=== PATIENT | female | born 1985 | race Caucasian/White ===

== ENCOUNTER 2018-02-01 00:44 | Emergency (ER) | payer MEDICARE, MEDICAID ==
[2018-02-01 00:54] VITALS: BP 140/80
[2018-02-01 01:06] LABS: APPEARANCE,URINE SLIGHTLY-CLOUDY; BILIRUBIN,URINE NEGATIVE (NEGATIVE); COLOR,URINE STRAW; GLUCOSE, URINE NEGATIVE (NEGATIVE); KETONES,URINE NEGATIVE (NEGATIVE); LEUKOCYTE ESTERASE,URINE NEGATIVE (NEGATIVE); NITRITE,URINE NEGATIVE (NEGATIVE); PROTEIN,URINE NEGATIVE (NEGATIVE); URINE SPECIFIC GRAVITY 1.012; UROBILINOGEN,URINE NEGATIVE mg/dL (<2.0)
--- NOTE | 2018-02-01 01:45 | ER Document Report ---
ED Medical Screen (RME) - General Chief Complaint: Flank Pain Stated Complaint: FLANK PAIN Time Seen by Provider: 02/01/18 01:37 Mode of Arrival: Ambulatory Information source: Patient Notes: 32-year-old female presents to ED for complaint of abdominal pain chest pain flank pain and back pain bilaterally. She states she has a head cold cough congestion spitting up green sputum. She states she started eating spicy green- brown mustard and started feeling much better. She states the pain all started about 10 PM tonight she has had the cough and congestion for about 5 days. She denies any fevers. I offered patient Tylenol and Motrin and she did not want either one. She was walking bent over states she could not stand up that it hurt too much. She was speaking full sentences with no shortness of breath. No acute distress until she stood up and tried to walk. I have greeted and performed a rapid initial assessment of this patient. A comprehensive ED assessment and evaluation of the patient, analysis of test results and completion of medical decision making process will be conducted by an additional ED providers. TRAVEL OUTSIDE OF THE [place] IN LAST 30 DAYS: No - Related Data Allergies/Adverse Reactions: codeine [Codeine] Allergy (Severe, Verified 02/28/15 09:32) VOMITING doxycycline [Doxycycline] Allergy (Severe, Verified 02/28/15 09:32) RASH fentanyl [Fentanyl] Allergy (Severe, Verified 02/28/15 09:52) Unknown reaction morphine [Morphine] Allergy (Severe, Verified 02/28/15 09:32) Anaphylaxis Penicillins Allergy (Severe, Verified 02/28/15 09:32) RASH promethazine HCl [From Phenergan] Allergy (Severe, Verified 02/28/15 09:32) VOMITING acetaminophen [From Tylenol] Allergy (Mild, Verified 02/28/15 09:32) SKIN GETS HOT tramadol [Tramadol] Allergy (Verified 02/28/15 17:39) zolpidem tartrate [From Ambien] Allergy (Verified 02/28/15 17:39) albuterol [Albuterol] Adverse Reaction (Severe, Verified 02/28/15 09:52) Tachycardia Flu vacine Allergy (Severe, Uncoded 02/28/15 09:32) Unknown reaction Past Medical History Renal/ Medical History: Denies: Hx Kidney Stones, Hx Ovarian Cysts, Hx Peritoneal Dialysis, Hx Pelvic Inflammatory Disease Malignancy Medical History: Denies: Hx Breast Cancer, Hx Cervical Cancer, Hx Ovarian Cancer GI Medical History: Reports: Hx Gastroesophageal Reflux Disease - WITH . Denies: Hx Hiatal Hernia, Hx Ulcer Musculoskeltal Medical History: Denies Hx Fibromyalgia Psychiatric Medical History: Denies: Hx Bipolar Disorder, Hx Depression, Hx Post Traumatic Stress Disorder , Hx Schizophrenia Traumatic Medical History: Denies: Hx Fractures Past Surgical History: Reports: Hx Orthopedic Surgery - ACL Physical Exam - Vital signs Vitals: Temp Pulse Resp BP Pulse Ox 98.7 F 100 18 140/80 H 98 02/01/18 00:45 02/01/18 00:45 02/01/18 00:45 02/01/18 00:45 02/01/18 00:45 Course - Vital Signs Vital signs: Temp Pulse Resp BP Pulse Ox 98.7 F 100 18 140/80 H 98 02/01/18 00:45 02/01/18 00:45 02/01/18 00:45 02/01/18 00:45 02/01/18 00:45
--- NOTE | 2018-02-01 04:23 | RADIOLOGY REPORT (SQ) ---
EXAM DESCRIPTION: KUB/ABDOMEN (SINGLE VIEW) CLINICAL HISTORY: 32 years, Female, abd pain COMPARISON: None. NUMBER OF VIEWS: 1 limitation: Rotation, abdomen only. FINDINGS: Intestinal gas pattern is within normal limits. Paucity of bowel gas. No suspicious calcification. Grossly intact skeletal structures. IMPRESSION: No acute findings.
--- NOTE | 2018-02-01 04:24 | RADIOLOGY REPORT (SQ) ---
EXAM DESCRIPTION: CHEST SINGLE VIEW CLINICAL HISTORY: 32 years Female, ABD PAIN, COUGH COMPARISON: None. NUMBER OF VIEWS/TECHNIQUE: 1/AP LIMITATIONS: Chin artifact. FINDINGS: Low lung volume, moderate dextroconvexity, clear parenchyma, normal cardiac silhouette. IMPRESSION: Low lung volume.
--- NOTE | 2018-02-01 04:38 | ER Document Report ---
ED General - General Chief Complaint: Flank Pain Stated Complaint: FLANK PAIN Time Seen by Provider: 02/01/18 01:37 Mode of Arrival: Ambulatory TRAVEL OUTSIDE OF THE [place] IN LAST 30 DAYS: No - HPI Patient complains to provider of: Abdominal pain Notes: Patient coming in for multiple complaints initially. Upon my initial evaluation patient was sleeping in the right lateral recumbent position patient was easily aroused patient woke up and was able to roll over onto her back. Patient states has a history significant for scoliosis patient states aching all over with abdominal pain stating it feels like her abdomen exploded also states she has been coughing difficulty in breathing coughing up green sputum pain in her chest whenever she takes a deep breath in. Patient denies any fevers or chills. during discussion with patient patient asked of the symptoms were I think may be going on. Explained the possibility of a virus. Patient states that she does not believe she has a virus. Patient states that her complaints now that she has bone pain. Patient states diffuse bone pain in her back and throughout her body. Patient does not think a virus causes her bone pain. I explained to patient that her initial complaints were abdominal pain with shortness of breath cough difficulty breathing patient then denies these complaints. Patient states her complaint now is bone pain. - Related Data Allergies/Adverse Reactions: codeine [Codeine] Allergy (Severe, Verified 02/28/15 09:32) VOMITING doxycycline [Doxycycline] Allergy (Severe, Verified 02/28/15 09:32) RASH fentanyl [Fentanyl] Allergy (Severe, Verified 02/28/15 09:52) Unknown reaction morphine [Morphine] Allergy (Severe, Verified 02/28/15 09:32) Anaphylaxis Penicillins Allergy (Severe, Verified 02/28/15 09:32) RASH promethazine HCl [From Phenergan] Allergy (Severe, Verified 02/28/15 09:32) VOMITING acetaminophen [From Tylenol] Allergy (Mild, Verified 02/28/15 09:32) SKIN GETS HOT tramadol [Tramadol] Allergy (Verified 02/28/15 17:39) zolpidem tartrate [From Ambien] Allergy (Verified 02/28/15 17:39) albuterol [Albuterol] Adverse Reaction (Severe, Verified 02/28/15 09:52) Tachycardia Flu vacine Allergy (Severe, Uncoded 02/28/15 09:32) Unknown reaction Past Medical History - General Information source: Patient - Social History Smoking Status: Unknown if Ever Smoked Family History: Reviewed & Not Pertinent Patient has suicidal ideation: No Patient has homicidal ideation: No Renal/ Medical History: Denies: Hx Kidney Stones, Hx Ovarian Cysts, Hx Peritoneal Dialysis, Hx Pelvic Inflammatory Disease Malignancy Medical History: Denies: Hx Breast Cancer, Hx Cervical Cancer, Hx Ovarian Cancer GI Medical History: Reports: Hx Gastroesophageal Reflux Disease - WITH . Denies: Hx Hiatal Hernia, Hx Ulcer Musculoskeltal Medical History: Denies Hx Fibromyalgia Psychiatric Medical History: Denies: Hx Bipolar Disorder, Hx Depression, Hx Post Traumatic Stress Disorder , Hx Schizophrenia Traumatic Medical History: Denies: Hx Fractures Past Surgical History: Reports: Hx Orthopedic Surgery - ACL Review of Systems - Review of Systems Constitutional: Other - Multiple various complaints EENT: No symptoms reported Cardiovascular: No symptoms reported Respiratory: No symptoms reported Gastrointestinal: No symptoms reported Genitourinary: No symptoms reported Female Genitourinary: No symptoms reported Musculoskeletal: No symptoms reported Skin: No symptoms reported Hematologic/Lymphatic: No symptoms reported Neurological/Psychological: No symptoms reported -: Yes All other systems reviewed and negative Physical Exam - Vital signs Vitals: Temp Pulse Resp BP Pulse Ox 98.7 F 100 18 140/80 H 98 02/01/18 00:45 02/01/18 00:45 02/01/18 00:45 02/01/18 00:45 02/01/18 00:45 Interpretation: Normal - General General appearance: Appears well, Alert - HEENT Head: Normocephalic, Atraumatic Eyes: Normal Pupils: PERRL - Respiratory Respiratory status: No respiratory distress Chest status: Nontender Breath sounds: Normal Chest palpation: Normal - Cardiovascular Rhythm: Regular Heart sounds: Normal auscultation Murmur: No - Abdominal Inspection: Normal Distension: No distension Bowel sounds: Normal Tenderness: Nontender Organomegaly: No organomegaly - Back Back: Normal, Other - Obvious scoliosis with no midline tenderness or paraspinal tenderness - Extremities General upper extremity: Normal inspection, Nontender, Normal color, Normal ROM , Normal temperature General lower extremity: Normal inspection, Nontender, Normal color, Normal ROM , Normal temperature, Normal weight bearing. No: Ashley's sign - Neurological Neuro grossly intact: Yes Cognition: Normal Orientation: AAOx4 Gibson Coma Scale Eye Opening: Spontaneous Gibson Coma Scale Verbal: Oriented Basilia Coma Scale Motor: Obeys Commands Gibson Coma Scale Total: 15 Speech: Normal Motor strength normal: LUE, RUE, LLE, RLE Sensory: Normal - Psychological Associated symptoms: Normal affect, Normal mood - Skin Skin Temperature: Warm Skin Moisture: Dry Skin Color: Normal Course - Re-evaluation Re-evalutation: 02/01/18 04:34 Patient upon initial HPI had multiple various complaints. Splinted patient I do believe most of her complaints could be viral in origin again patient was initially sleeping and unable to roll on her back patient states that she is unable ambulate however according to triage note patient was able to walk and stand up and give urine sample. Patient did ambulate bent over. I explained to the patient because she feels like her insides have exploded like to obtain lab work and an x-ray. Patient is refusing all lab draws but does initially agree with the x-ray. Patient was taken over to the x-ray suite however stated that she was unable to stand and unable to lie flat for the x- rays therefore patient was taken back to her room. I did again reevaluate the patient with nurse at bedside. Patient again sleeping in the right lateral come position patient states that her complaints are not shortness of breath cough or sputum production states that her complaint is that she has a burning sensation in her abdomen going to both sides and going to her back. Patient states that she was told that she had a rupture of her abdominal muscles many years back which is bad for scoliosis. Patient states she thinks this is what is causing her pain. I again reassured the patient that this time she looks to be in no acute distress again offered to perform x-rays with the patient did initially agree with in her stretcher. X-rays performed show scoliosis otherwise no signs of acute disease. 02/01/18 04:51 Patient again evaluated at this time resting snoring sleeping easily aroused of the abdomen again reveals no tenderness no rashes benign symptoms. I have no clear etiology for the patient's symptoms within limitations with the patient will let us do the night I do not see any critical pathology will discharge patient home. - Vital Signs Vital signs: Temp Pulse Resp BP Pulse Ox 98.7 F 100 18 140/80 H 98 02/01/18 00:45 02/01/18 00:45 02/01/18 00:45 02/01/18 00:45 02/01/18 00:45 Discharge - Discharge Clinical Impression: Abdominal burning Condition: Good Instructions: Abdominal Pain ([facility]) Additional Instructions: Your examination today and on x-rays not reveal any significant or acute pathology. I do not have a reason for your symptoms this could be viral this could be due to muscle strain from strength activity. I would recommend take your medications that she normally do at home for pain control ice packs warm packs to make a comfortable. Return to the ER symptoms worsen.
== END 2018-02-01 06:03 | disposition home or self-care (01) ==
LOC: ER 00:44
DX: R10.9 Unspecified abdominal pain (principal); R05 Cough; R07.1 Chest pain on breathing; M41.9 Scoliosis, unspecified; Z88.5 Allergy status to narcotic agent; Z88.1 Allergy status to other antibiotic agents; Z88.0 Allergy status to penicillin; Z88.8 Allergy status to other drugs, medicaments and biological substances; Z88.6 Allergy status to analgesic agent; Z88.7 Allergy status to serum and vaccine
CPT/HCPCS: 71045; 74018; 81001; 81025; 99284

== ENCOUNTER 2018-05-06 17:51 | Emergency (ER) | payer MEDICARE, MEDICAID ==
[2018-05-06] MEDS ORDERED: DICYCLOMINE HCL INJ 20 MG/2 ML AMPULE IM ONE (18:21)
[2018-05-06] MEDS ORDERED: ONDANSETRON 4 MG TAB.RAPDIS PO ONE (18:21)
--- NOTE | 2018-05-06 18:23 | ER Document Report ---
ED Medical Screen (RME) - General Chief Complaint: Nausea/Vomiting Stated Complaint: VOMITING Time Seen by Provider: 05/06/18 18:12 Notes: RAPID MEDICAL EVALUATION DISCLOSURE I have seen this patient as part of a Rapid Medical Evaluation and, if applicable, placed any initially appropriate orders. The patient will be seen and fully evaluated, including a full history and physical exam, by a provider ( in Main ED or Fast Track) when a room becomes available. 32-year-old female here with complaints of nausea vomiting diarrhea and abdominal pain that started earlier today. She thinks she may have food poisoning however multiple people ate the same things as her and they did not get sick. She has not tried anything for the symptoms. She also has some dysuria. Denies any intra-abdominal surgeries other than . EXAM Mild to moderate diffuse abdominal TTP Vomiting in the room TRAVEL OUTSIDE OF THE [place] IN LAST 30 DAYS: No - Related Data Allergies/Adverse Reactions: codeine [Codeine] Allergy (Severe, Verified 05/06/18 17:52) VOMITING doxycycline [Doxycycline] Allergy (Severe, Verified 05/06/18 17:52) RASH fentanyl [Fentanyl] Allergy (Severe, Verified 05/06/18 17:52) Unknown reaction morphine [Morphine] Allergy (Severe, Verified 05/06/18 17:52) Anaphylaxis Penicillins Allergy (Severe, Verified 05/06/18 17:52) RASH promethazine HCl [From Phenergan] Allergy (Severe, Verified 05/06/18 17:52) VOMITING acetaminophen [From Tylenol] Allergy (Mild, Verified 05/06/18 17:52) SKIN GETS HOT tramadol [Tramadol] Allergy (Verified 05/06/18 17:52) zolpidem tartrate [From Ambien] Allergy (Verified 05/06/18 17:52) albuterol [Albuterol] Adverse Reaction (Severe, Verified 05/06/18 17:52) Tachycardia Flu vacine Allergy (Severe, Uncoded 05/06/18 17:52) Unknown reaction Past Medical History - Social History Chew tobacco use (# tins/day): No Frequency of alcohol use: None Drug Abuse: None Renal/ Medical History: Denies: Hx Kidney Stones, Hx Ovarian Cysts, Hx Peritoneal Dialysis, Hx Pelvic Inflammatory Disease Malignancy Medical History: Denies: Hx Breast Cancer, Hx Cervical Cancer, Hx Ovarian Cancer GI Medical History: Reports: Hx Gastroesophageal Reflux Disease - WITH . Denies: Hx Hiatal Hernia, Hx Ulcer Musculoskeltal Medical History: Denies Hx Fibromyalgia Psychiatric Medical History: Denies: Hx Bipolar Disorder, Hx Depression, Hx Post Traumatic Stress Disorder , Hx Schizophrenia Traumatic Medical History: Denies: Hx Fractures Past Surgical History: Reports: Hx Orthopedic Surgery - ACL Physical Exam - Vital signs Vitals: Temp Pulse Resp BP Pulse Ox 98.9 F 100 16 123/87 H 98 05/06/18 17:57 05/06/18 17:57 05/06/18 17:57 05/06/18 17:57 05/06/18 17:57 Course - Vital Signs Vital signs: Temp Pulse Resp BP Pulse Ox 98.9 F 100 16 123/87 H 98 05/06/18 17:57 05/06/18 17:57 05/06/18 17:57 05/06/18 17:57 05/06/18 17:57
[2018-05-06 19:05] LABS: HEMATOCRIT 48.2 % (36.0-47.0); HEMOGLOBIN 16.4 g/dL (12.0-15.5); MEAN CORPUSCULAR HEMOGLOBIN 30.8 pg (27.0-33.4); MEAN CORPUSCULAR HGB CONC 34.1 g/dL (32.0-36.0); MEAN CORPUSCULAR VOLUME 90 fl (80-97); PLATELET COUNT 331 10^3/uL (150-450); RED BLOOD COUNT 5.34 10^6/uL (3.72-5.28); RED CELL DISTRIBUTION WIDTH 12.8 % (11.5-14.0); WHITE BLOOD COUNT 19.7 10^3/uL (4.0-10.5)
[2018-05-06 19:33] LABS: ABSOLUTE LYMPHOCYTES# (MANUAL) 0.4 10^3/uL (0.5-4.7); ABSOLUTE MONOCYTES # (MANUAL) 0.2 10^3/uL (0.1-1.4); ABSOLUTE NEUTROPHILS# (MANUAL) 18.9 10^3/uL (1.7-8.2); BASOPHILS % (MANUAL) 0 % (0-2); EOSINOPHILS % (MANUAL) 1 % (0-6); LYMPHOCYTES % (MANUAL) 2 % (13-45); MONOCYTES % (MANUAL) 1 % (3-13); SEGMENTED NEUTROPHILS % (MAN) 96 % (42-78); TOTAL CELLS COUNTED 100
[2018-05-06 19:36] LABS: PLATELET CLUMPS PRESENT; PLATELET COMMENT ADEQUATE; PLATELET LARGE PRESENT; TOXIC GRANULATION 1+; TOXIC VACUOLATION PRESENT
[2018-05-06] MEDS ORDERED: RINGERS SOLUTION,LACTATED 1,000 ML IV ONE (20:51)
[2018-05-06 20:59] LABS: ALANINE AMINOTRANSFERASE 19 U/L (9-52); ALBUMIN 4.8 g/dL (3.5-5.0); ALKALINE PHOSPHATASE 78 U/L (38-126); ANION GAP 12 (5-19); ASPARTATE AMINO TRANSFERASE 30 U/L (14-36); BILIRUBIN,DIRECT 0.4 mg/dL (0.0-0.4); BILIRUBIN,TOTAL 0.7 mg/dL (0.2-1.3); BLOOD UREA NITROGEN 17 mg/dL (7-20); CALCIUM 9.1 mg/dL (8.4-10.2); CARBON DIOXIDE 26 mmol/L (22-30); CHLORIDE 105 mmol/L (98-107); GLUCOSE 128 mg/dL (75-110); LIPASE 66.6 U/L (23-300); POTASSIUM 4.7 mmol/L (3.6-5.0); SODIUM 142.5 mmol/L (137-145); TOTAL PROTEIN 8.3 g/dL (6.3-8.2)
[2018-05-06] MEDS ORDERED: IBUPROFEN 600 MG TABLET PO ONE (21:53)
[2018-05-06] MEDS ORDERED: ONDANSETRON ODT 4 MG TAB (6 TAB/ER DISP) PO PRN (21:53)
--- NOTE | 2018-05-06 21:56 | ER Document Report ---
ED General - General Chief Complaint: Nausea/Vomiting Stated Complaint: VOMITING Time Seen by Provider: 05/06/18 18:12 Notes: Patient is a 32-year-old female without chronic medical problems who presents with 24 hours of nausea, vomiting, and diarrhea as well as generalized abdominal cramping. She states that the symptoms started gradually and have been persistent since that time. She has not tried anything to improve her symptoms, has not noted that anything worsens her symptoms. She denies a history of similar symptoms in the past. She states that she feels like her anxiety has also been significantly elevated since onset of the symptoms. She has not seen her primary doctor regarding today's concerns. She denies any fever or constitutional symptoms. No known sick contacts. TRAVEL OUTSIDE OF THE [place] IN LAST 30 DAYS: No - Related Data Allergies/Adverse Reactions: codeine [Codeine] Allergy (Severe, Verified 05/06/18 17:52) VOMITING doxycycline [Doxycycline] Allergy (Severe, Verified 05/06/18 17:52) RASH fentanyl [Fentanyl] Allergy (Severe, Verified 05/06/18 17:52) Unknown reaction morphine [Morphine] Allergy (Severe, Verified 05/06/18 17:52) Anaphylaxis Penicillins Allergy (Severe, Verified 05/06/18 17:52) RASH promethazine HCl [From Phenergan] Allergy (Severe, Verified 05/06/18 17:52) VOMITING acetaminophen [From Tylenol] Allergy (Mild, Verified 05/06/18 17:52) SKIN GETS HOT Iodine and Iodide Containing Produc Allergy (Verified 05/06/18 21:00) tramadol [Tramadol] Allergy (Verified 05/06/18 17:52) zolpidem tartrate [From Ambien] Allergy (Verified 05/06/18 17:52) albuterol [Albuterol] Adverse Reaction (Severe, Verified 05/06/18 17:52) Tachycardia Flu vacine Allergy (Severe, Uncoded 05/06/18 17:52) Unknown reaction Past Medical History - General Information source: Patient - Social History Smoking Status: Current Every Day Smoker Chew tobacco use (# tins/day): No Frequency of alcohol use: None Drug Abuse: None Lives with: Spouse/Significant other Family History: Reviewed & Not Pertinent Patient has suicidal ideation: No Patient has homicidal ideation: No Renal/ Medical History: Denies: Hx Kidney Stones, Hx Ovarian Cysts, Hx Peritoneal Dialysis, Hx Pelvic Inflammatory Disease Malignancy Medical History: Denies: Hx Breast Cancer, Hx Cervical Cancer, Hx Ovarian Cancer GI Medical History: Reports: Hx Gastroesophageal Reflux Disease - WITH . Denies: Hx Hiatal Hernia, Hx Ulcer Musculoskeltal Medical History: Denies Hx Fibromyalgia Psychiatric Medical History: Denies: Hx Bipolar Disorder, Hx Depression, Hx Post Traumatic Stress Disorder , Hx Schizophrenia Traumatic Medical History: Denies: Hx Fractures Past Surgical History: Reports: Hx Orthopedic Surgery - ACL Review of Systems - Review of Systems Notes: Constitutional: Negative for fever. HENT: Negative for sore throat. Eyes: Negative for visual changes. Cardiovascular: Negative for chest pain. Respiratory: Negative for shortness of breath. Gastrointestinal: Positive for vomiting and diarrhea as well as abdominal cramping Genitourinary: Negative for dysuria. Musculoskeletal: Negative for back pain. Skin: Negative for rash. Neurological: Negative for headaches, weakness or numbness. 10 point ROS negative except as marked above and in HPI. Physical Exam - Vital signs Vitals: Temp Pulse Resp BP Pulse Ox 98.9 F 100 16 123/87 H 98 05/06/18 17:57 05/06/18 17:57 05/06/18 17:57 05/06/18 17:57 05/06/18 17:57 Interpretation: Normal Notes: PHYSICAL EXAMINATION: GENERAL: Well-appearing, well-nourished and in no acute distress. HEAD: Atraumatic, normocephalic. EYES: Pupils equal round and reactive to light, extraocular movements intact, sclera anicteric, conjunctiva are normal. ENT: nares patent, oropharynx clear without exudates. Mildly dry mucous membranes. NECK: Normal range of motion, supple without lymphadenopathy LUNGS: Breath sounds clear to auscultation bilaterally and equal. No wheezes rales or rhonchi. HEART: Regular rate and rhythm without murmurs ABDOMEN: Soft, nontender, normoactive bowel sounds. No guarding, no rebound. No masses appreciated. EXTREMITIES: Normal range of motion, no pitting or edema. No cyanosis. NEUROLOGICAL: No focal neurological deficits. Moves all extremities spontaneously and on command. PSYCH: Quite anxious SKIN: Warm, Dry, normal turgor, no rashes or lesions noted. Course - Re-evaluation Re-evalutation: 05/06/18 21:53 Presentation of an overall well-appearing patient in no acute distress with complaints of nausea, vomiting, diarrhea. This is consistent with likely viral gastroenteritis. Patient has no abdominal tenderness on exam and specifically no tenderness in the RLQ, LLQ, RUQ. Overall well hydrated on exam. Able to tolerate oral intake here in the emergency department. Low clinical suspicion for any acute life-threatening etiology based on exam and history including acute cholecystitis, SBO, appendicitis, nephrolithiasis, or pylonephritis. CMP without evidence of acute hepatitis or significant dehydration. CBC sent from triage does show a leukocytosis which is not unanticipated in the context of patient having had nausea, vomiting and diarrhea. She declined a CT scan that was ordered in triage and has also declined IV fluids. I have informed her of the white blood cell count and need for follow-up regarding this finding. We have also extensively reviewed that she needs to return if her abdominal pain returns or she has worsening of her symptoms. At this time will discharge with return precautions and follow-up recommendations. Verbal discharge instructions given a the bedside and opportunity for questions given. Medication warnings reviewed. Patient is in agreement with this plan and has verbalized understanding of return precautions and the need for primary care follow-up in the next 24-72 hours. - Vital Signs Vital signs: Temp Pulse Resp BP Pulse Ox 99.2 F 104 H 16 113/69 100 05/06/18 22:28 05/06/18 22:28 05/06/18 22:28 05/06/18 22:28 05/06/18 22:28 - Laboratory Result Diagrams: 05/06/18 18:42 05/06/18 19:32 Laboratory results interpreted by me: 05/06/18 05/06/18 18:42 19:32 WBC 19.7 H RBC 5.34 H Hgb 16.4 H Hct 48.2 H Seg Neuts % (Manual) 96 H Lymphocytes % (Manual) 2 L Monocytes % (Manual) 1 L Abs Neuts (Manual) 18.9 H Abs Lymphs (Manual) 0.4 L Glucose 128 H Total Protein 8.3 H Discharge - Discharge Clinical Impression: Nausea vomiting and diarrhea, Dehydration, Abdominal cramping Condition: Good Disposition: HOME, SELF-CARE Additional Instructions: Your symptoms are likely due to a viral illness and should resolve in the next several days. You can take [id number] loperamide also known as Imodium as needed for diarrhea per box instructions. Continue to stay hydrated with plenty of solution such as Gatorade or Pedialyte. You are being prescribed Zofran to take as needed for nausea and vomiting. Please return if you develop severe abdominal pain, pass out, become unable to tolerate any oral fluids for 12 more hours, or any other symptoms that are concerning to you.
[2018-05-06 22:29] VITALS: BP 113/69
== END 2018-05-06 22:29 | disposition home or self-care (01) ==
LOC: ER 17:51
DX: R11.2 Nausea with vomiting, unspecified (principal); R19.7 Diarrhea, unspecified; R10.84 Generalized abdominal pain; E86.0 Dehydration; F17.200 Nicotine dependence, unspecified, uncomplicated; Z88.6 Allergy status to analgesic agent; Z88.0 Allergy status to penicillin
CPT/HCPCS: 99284; 96372; 36415; 83690; 85025; 80053; J0500; A9270 ×3; S0119

== ENCOUNTER 2018-09-07 17:34 | Emergency (ER) | payer MEDICAID, MEDICARE ==
[2018-09-07] MEDS ORDERED: DIPH/PERTUSS(ACELL)/TETANUS VAC/PF 0.5 ML SYR (>=10YO) IM ONE (18:15)
[2018-09-07] MEDS ORDERED: HEPATITIS B VIRUS VACCINE-PF 0.5 ML VIAL IM ONE ×2 (18:22→19:31)
[2018-09-07] MEDS ORDERED: HEPATITIS B IMMUNE GLOBULIN 110 UNIT/0.5 ML DISP.SYRIN IM ONE (18:23)
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
[2018-09-07 18:30] LABS: ABSOLUTE BASOPHILS # (AUTO) 0.1 10^3/uL (0.0-0.2); ABSOLUTE EOSINOPHILS # (AUTO) 0.3 10^3/uL (0.0-0.6); ABSOLUTE LYMPHOCYTES (AUTO) 2.2 10^3/uL (0.5-4.7); ABSOLUTE MONOCYTES (AUTO) 0.8 10^3/uL (0.1-1.4); ABSOLUTE NEUT (AUTO) 8.4 10^3/uL (1.7-8.2); BASOPHILS % (AUTO) 0.4 % (0-2); EOSINOPHILS % (AUTO) 2.3 % (0-6); HEMATOCRIT 39.9 % (36.0-47.0); HEMOGLOBIN 13.7 g/dL (12.0-15.5); LYMPHOCYTES % (AUTO) 19.2 % (13-45); MEAN CORPUSCULAR HEMOGLOBIN 30.9 pg (27.0-33.4); MEAN CORPUSCULAR HGB CONC 34.4 g/dL (32.0-36.0); MEAN CORPUSCULAR VOLUME 90 fl (80-97); MONOCYTES % (AUTO) 6.6 % (3-13); PLATELET COUNT 356 10^3/uL (150-450); RED BLOOD COUNT 4.45 10^6/uL (3.72-5.28); SEGMENTED NEUTROPHILS % (AUTO) 71.5 % (42-78); TOTAL CELLS COUNTED % (AUTO) 100 %; WHITE BLOOD COUNT 11.7 10^3/uL (4.0-10.5)
[2018-09-07 18:45] LABS: ALANINE AMINOTRANSFERASE 18 U/L (9-52); ALBUMIN 4.2 g/dL (3.5-5.0); ALKALINE PHOSPHATASE 72 U/L (38-126); ANION GAP 10 (5-19); ASPARTATE AMINO TRANSFERASE 19 U/L (14-36); BILIRUBIN,DIRECT 0.1 mg/dL (0.0-0.4); BILIRUBIN,TOTAL 0.2 mg/dL (0.2-1.3); BLOOD UREA NITROGEN 16 mg/dL (7-20); CALCIUM 9.5 mg/dL (8.4-10.2); CARBON DIOXIDE 28 mmol/L (22-30); CHLORIDE 105 mmol/L (98-107); GLUCOSE 114 mg/dL (75-110); POTASSIUM 4.2 mmol/L (3.6-5.0); SODIUM 142.5 mmol/L (137-145)
[2018-09-07] MEDS ORDERED: EMTRICITABINE/TENOFOVIR 200-300 MG TAB (3 TAB/ER DISP) PO PRN (19:11)
[2018-09-07] MEDS ORDERED: RALTEGRAVIR 400 MG TAB (6 TAB/ER DISP) PO PRN (19:11)
[2018-09-07] MEDS ORDERED: HEPATITIS B IMMUNE GLOBULIN INJ 5 ML VIAL IM ONE (19:15)
[2018-09-07 20:37] VITALS: BP 139/80
[2018-09-09 07:44] LABS: HEPATITIS A AB IGM Negative (Negative); HEPATITIS B CORE AB IGM Negative (Negative); HEPATITS B SURFACE ANTIGEN Negative (Negative)
[2018-09-09 09:27] LABS: HEPATITIS C VIRUS ANTIBODY 0.1 s/co ratio (0.0-0.9)
== END 2018-09-07 20:37 | disposition home or self-care (01) ==
LOC: ER 17:34
DX: S61.233A Puncture wound without foreign body of left middle finger without damage to nail, initial encounter (principal); S61.231A Puncture wound without foreign body of left index finger without damage to nail, initial encounter; W46.0XXA Contact with hypodermic needle, initial encounter; Y93.89 Activity, other specified; Y92.810 Car as the place of occurrence of the external cause; F17.200 Nicotine dependence, unspecified, uncomplicated; Z88.7 Allergy status to serum and vaccine; Z23 Encounter for immunization
CPT/HCPCS: 99283; 96372; 90471; 36415; 84703; 85025; 80053; 86701; 80074; 90715; 90371; 90746; A9270 ×2

== ENCOUNTER 2018-09-13 11:18 | Emergency (ER) | payer MEDICARE ==
--- NOTE | 2018-09-13 12:06 | ER Document Report ---
HPI - HPI Pain Level: 2 - REPRODUCTIVE Reproductive: REPORTS: : Past Medical History - Social History Family History: Reviewed & Not Pertinent Renal/ Medical History: Denies: Hx Kidney Stones, Hx Ovarian Cysts, Hx Peritoneal Dialysis, Hx Pelvic Inflammatory Disease Malignancy Medical History: Denies: Hx Breast Cancer, Hx Cervical Cancer, Hx Ovarian Cancer GI Medical History: Reports: Hx Gastroesophageal Reflux Disease - WITH . Denies: Hx Hiatal Hernia, Hx Ulcer Musculoskeletal Medical History: Denies Hx Fibromyalgia Psychiatric Medical History: Denies: Hx Bipolar Disorder, Hx Depression, Hx Post Traumatic Stress Disorder , Hx Schizophrenia Traumatic Medical History: Denies: Hx Fractures Past Surgical History: Reports: Hx Orthopedic Surgery - ACL, Hx Vascular Surgery Vertical Provider Document - INFECTION CONTROL TRAVEL OUTSIDE OF THE [place] IN LAST 30 DAYS: No Course - Vital Signs Vital signs: Temp Pulse Resp BP Pulse Ox 98.3 F 79 14 109/62 98 09/13/18 11:40 09/13/18 11:40 09/13/18 11:40 09/13/18 11:40 09/13/18 11:40
--- NOTE | 2018-09-13 12:24 | ER Document Report ---
ED Medical Screen (RME) - General Chief Complaint: Facial Swelling Stated Complaint: SWOLLEN LYMPH NODES Time Seen by Provider: 09/13/18 12:06 Mode of Arrival: Ambulatory Information source: Patient Notes: 32-year-old female complaining of right mid sub-mandibular swelling tenderness that started the day after she got hepatitis B shots and tetanus shot. She is also complaining of chest lymph nodes posterior occipital lymph nodes and left axillary lymph node swelling. She has a history of cervical cancer. Her grandmother had lymphatic cancer. She does have a facial lesion that she got clear fluid out of but that was after she found the swollen lymph nodes. TRAVEL OUTSIDE OF THE [place] IN LAST 30 DAYS: No - Related Data Allergies/Adverse Reactions: codeine [Codeine] Allergy (Severe, Verified 09/13/18 11:24) VOMITING doxycycline [Doxycycline] Allergy (Severe, Verified 09/13/18 11:24) RASH fentanyl [Fentanyl] Allergy (Severe, Verified 09/13/18 11:24) Unknown reaction morphine [Morphine] Allergy (Severe, Verified 09/13/18 11:24) Anaphylaxis Penicillins Allergy (Severe, Verified 09/13/18 11:24) RASH promethazine HCl [From Phenergan] Allergy (Severe, Verified 09/13/18 11:24) VOMITING acetaminophen [From Tylenol] Allergy (Mild, Verified 09/13/18 11:24) SKIN GETS HOT Iodine and Iodide Containing Produc Allergy (Verified 09/13/18 11:24) tramadol [Tramadol] Allergy (Verified 09/13/18 11:24) zolpidem tartrate [From Ambien] Allergy (Verified 09/13/18 11:24) albuterol [Albuterol] Adverse Reaction (Severe, Verified 09/13/18 11:24) Tachycardia Flu vacine Allergy (Severe, Uncoded 09/13/18 11:24) Unknown reaction Past Medical History Renal/ Medical History: Denies: Hx Kidney Stones, Hx Ovarian Cysts, Hx Peritoneal Dialysis, Hx Pelvic Inflammatory Disease Malignancy Medical History: Denies: Hx Breast Cancer, Hx Cervical Cancer, Hx Ovarian Cancer GI Medical History: Reports: Hx Gastroesophageal Reflux Disease - WITH . Denies: Hx Hiatal Hernia, Hx Ulcer Musculoskeltal Medical History: Denies Hx Fibromyalgia Psychiatric Medical History: Denies: Hx Bipolar Disorder, Hx Depression, Hx Post Traumatic Stress Disorder , Hx Schizophrenia Traumatic Medical History: Denies: Hx Fractures Past Surgical History: Reports: Hx Orthopedic Surgery - ACL, Hx Vascular Surgery Physical Exam - Vital signs Vitals: Temp Pulse Resp BP Pulse Ox 98.3 F 79 14 109/62 98 09/13/18 11:40 09/13/18 11:40 09/13/18 11:40 09/13/18 11:40 09/13/18 11:40 Course - Vital Signs Vital signs: Temp Pulse Resp BP Pulse Ox 98.3 F 79 14 109/62 98 09/13/18 11:40 09/13/18 11:40 09/13/18 11:40 09/13/18 11:40 09/13/18 11:40
[2018-09-13] MEDS ORDERED: IBUPROFEN 400 MG TABLET PO ONE (15:06)
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
[2018-09-13 16:37] VITALS: BP 118/96
== END 2018-09-13 16:38 | disposition home or self-care (01) ==
LOC: ER 11:18
DX: R59.9 Enlarged lymph nodes, unspecified (principal); W46.1XXA Contact with contaminated hypodermic needle, initial encounter; F17.210 Nicotine dependence, cigarettes, uncomplicated
CPT/HCPCS: 99283; A9270; J3490

== ENCOUNTER → 2019-03-21 | Outpatient (CLI) | payer MEDICARE, MEDICAID ==
--- NOTE | 2019-03-21 13:53 | RADIOLOGY REPORT (SQ) ---
EXAM DESCRIPTION: L SPINE WHOLE COMPLETED DATE/TIME: 03/21/2019 1:20 pm REASON FOR STUDY: M51.87 OTHER INTERVERTEBRAL DISC DISORDERS, LUMBOSACRAL REGION M54.2 CERVICALGIA M51.87 OTHER INTERVERTEBRAL DISC DISORDERS, LUMBOSACRAL JUAN M54.6 PAIN IN THORACIC SPINE COMPARISON: None. NUMBER OF VIEWS: Five views including obliques. TECHNIQUE: AP, lateral, oblique, and sacral radiographic images acquired of the lumbar spine. LIMITATIONS: None. FINDINGS: MINERALIZATION: Normal. SEGMENTATION: Normal. No transitional anatomy. ALIGNMENT: Significant rotatory levoscoliosis. VERTEBRAE: Maintained height. No fracture or worrisome bone lesion. DISCS: Preserved height. No significant osteophytes or end plate irregularity. POSTERIOR ELEMENTS: Pedicles and facets are intact. No pars defect or posterior arch defects. HARDWARE: None in the spine. PARASPINAL SOFT TISSUES: Normal. PELVIS: Intact as visualized. No fractures or worrisome bone lesions. SI joints intact. OTHER: No other significant finding. IMPRESSION: Scoliosis. TECHNICAL DOCUMENTATION: JOB ID: [id number]- All Rights Reserved Reading location - IP/workstation name: [email or web address]
--- NOTE | 2019-03-21 13:53 | RADIOLOGY REPORT (SQ) ---
EXAM DESCRIPTION: CERV SP 4 OR 5 VIEWS COMPLETED DATE/TIME: 03/21/2019 1:20 pm REASON FOR STUDY: M54.2 CERVICALGIA M54.2 CERVICALGIA M51.87 OTHER INTERVERTEBRAL DISC DISORDERS, LUMBOSACRAL JUAN M54.6 PAIN IN THORACIC SPINE COMPARISON: None. NUMBER OF VIEWS: Five views. TECHNIQUE: AP, lateral, obliques and odontoid radiographic images acquired of the cervical spine. LIMITATIONS: None. FINDINGS: MINERALIZATION: Normal. ALIGNMENT: Mild scoliosis. VERTEBRAE: Vertebral bodies of normal height. DISCS: No significant osteophytes or sclerosis. Disc height maintained. FORAMINA: No osteophytes or foraminal narrowing. LATERAL AND POSTERIOR ELEMENTS: Facets, lateral masses and spinous processes without significant find ings. HARDWARE: None in the spine. SOFT TISSUES: No masses or calcifications. Lung apices clear. OTHER: No other significant finding. IMPRESSION: Mild scoliosis. No acute findings. TECHNICAL DOCUMENTATION: JOB ID: [id number] [employer]- All Rights Reserved Reading location - IP/workstation name: [email or web address]
--- NOTE | 2019-03-21 13:54 | RADIOLOGY REPORT (SQ) ---
EXAM DESCRIPTION: T SPINE AP/LAT COMPLETED DATE/TIME: 03/21/2019 1:20 pm REASON FOR STUDY: M54.6 PAIN IN THORACIC SPINE M54.2 CERVICALGIA M51.87 OTHER INTERVERTEBRAL DISC DISORDERS, LUMBOSACRAL JUAN M54.6 PAIN IN THORACIC SPINE COMPARISON: Lumbar spine films same date NUMBER OF VIEWS: Two views. TECHNIQUE: AP and lateral radiographic images acquired of the thoracic spine. LIMITATIONS: None. FINDINGS: MINERALIZATION: Normal. ALIGNMENT: There is 64 of convex rightward thoracic curvature from the top of T3 to the bottom of T1 0. VERTEBRAE: No fracture or bone lesion. Maintained height, normal segmentation. DISCS: No significant loss of height or significant narrowing. No large osteophytes. HARDWARE: None in the spine. MEDIASTINUM AND SOFT TISSUES: Normal heart size and aortic contour. No soft tissue abnormality. VISUALIZED LUNG GAMBINO: Clear. OTHER: No other significant finding. IMPRESSION: 64 of convex rightward curvature thoracic spine. No hemivertebra or duplicated ribs. TECHNICAL DOCUMENTATION: JOB ID: [id number] [employer]- All Rights Reserved Reading location - IP/workstation name: [email or web address]
== END ==
LOC: RAD 12:16
PROVIDERS: ATTEND Pain Medicine Interventional Pain Medicine
DX: M54.2 Cervicalgia (principal); M51.87 Other intervertebral disc disorders, lumbosacral region; M54.6 Pain in thoracic spine
CPT/HCPCS: 72050; 72070; 72110